=== PATIENT | female | born 1980 | race Caucasian/White ===

== ENCOUNTER 2023-03-22 06:05 | Day surgery (SDC) | payer BC, SELFPAY ==
[2023-03-22] VITALS (7 sets, daily range): BP systolic 105–136; BP diastolic 64–87; PULSE 59–96; RESP 16–18; TEMP 36.2–36.8; O2SAT 99–100; BMI 21.4
[2023-03-22 06:48] LABS: Ur HCG Qualitative* Negative (Negative)
[2023-03-22] MEDS: SODIUM CHLORIDE 0.9 % (FLUSH) 10 ML SYRINGE IVF (06:50)
[2023-03-22] MEDS: LACTATED RINGERS 1000 ML 1,000 ML 100 ML IV (06:50)
--- NOTE | 2023-03-22 06:58 | W.PM.H&PU ---
History & Physical Update History & Physical Update H&P Reviewed and patient assessed: No changes noted
[2023-03-22 07:01] LABS: Creatinine* 0.6 mg/dL (0.5-1.5); Est. Creatinine Clearance* 127.26; Estimated Glomerular Filt Rate 115 ml/min
--- NOTE | 2023-03-22 07:31 | W.PM.GYNPROC ---
Procedure Note Time Seen by Provider: 07:31 Date of procedure: 03/22/23 Procedure Description: Preoperative diagnosis: Alva is a 42 year-old G0 with abnormal uterine bleeding due to submucosal fibroid Postoperative diagnosis: Same Procedure: Hysteroscopy, Dilation and Curettage, myomectomy using the Truclear incisor Anesthesia: Conscious sedation, paracervical block. Surgeon: Minna Johnson MD Drafting Clerk: None Estimated blood loss: <5 mL UOP: 5 cc IVF: 750 cc Specimen: Endometrial fibroid to pathology. Findings: Exam under anesthesia: Uterus: anteverted position, less than 6 week sized, mobile, with no masses or nodularity palpable. Uterus sounded to 8 cm. No adnexal masses or nodularity palpable. On hysteroscopy: Approximately 3 cm submucosal fibroid was appreciated on the posterior uterine wall near the internal os. This took up almost the entire transverse diameter of the uterus. Normal bilateral tubal ostias. Normal uterine fundus and anterior uterine wall. Procedure: Alva was taken to the operating operating room more conscious sedation was found to be adequate. The patient was placed on in the dorsal lithotomy position and an exam under anesthesia was performed with findings stated above. She was then prepped and draped in a normal sterile manner. A bivalve speculum was placed in the vagina. The cervix appears nulliparous. Otherwise no abnormalities. The paracervical block was placed using 1% lidocaine with epi , 5 mL was injected at the 4 and 8 o'clock positions on the cervix. The anterior lip of the cervix was grasped with a tenaculum. The cervix dilated to Hegar 6. The uterus sounded to 8 cm. The Truclear hysteroscope was advanced into the uterus. I was unable to have introduced the TruClear hysteroscope after dilation to a 6. The cervix was subsequently dilated to Hegar 8. This accommodated the TruClear scope readily. A diagnostic hysteroscopy was performed with normal saline as the insufflation medium. Findings are stated above. The Truclear incisor was then advanced through the camera. The curettage was performed with the soft tissue incisor initially but quickly switched to the dense tissue incisor as the consistency of the mass was more indicative of a uterine fibroid than a polyp. Curettage performed over an approximately 20 minutes. The incisor was then removed. The endometrial cavity appeared normal. Saline deficit at the end of the procedure 1380 mL. Total saline used 6630 mL. The hysteroscope, tenaculum clamp were removed. Silver nitrate sticks was used for hemostasis of tenaculum site. Speculum was removed from the vaginal canal. The patient tolerated the procedure well. Sponge, lap and instrument counts were correct x2 at the end of the procedure. The patient was taken to the recovery area in stable condition. Surgical debrief performed and pathology reviewed.
--- NOTE | 2023-03-22 08:48 | W.ANESCHARGE ---
Anesthesia Charges Start Date/Time Anesthesia Start Date: 03/22/23 Anesthesia Start Time: 07:24 Stop Date/Time Anesthesia Stop Date: 03/22/23 Anesthesia Stop Time: 08:48
--- NOTE | 2023-03-22 10:04 | W.ANESCHARGE ---
Anesthesia Charges Start Date/Time Anesthesia Start Date: 03/22/23 Anesthesia Start Time: 07:24 Stop Date/Time Anesthesia Stop Date: 03/22/23 Anesthesia Stop Time: 08:48
== END 2023-03-22 10:02 | disposition home or self-care (01) ==
PROVIDERS: PCP Physician Assistant Medical; Visit Provider Obstetrics & Gynecology
PROC: 0UDB8ZZ Extraction of Endometrium, Via Natural or Artificial Opening Endoscopic (ICD-10-PCS; CPT 58558; principal; 2023-03-22 07:15)
DX: D25.0 Submucous leiomyoma of uterus (principal); N93.8 Other specified abnormal uterine and vaginal bleeding
CPT/HCPCS: 58558; 00952; 36415; 81025; 82565; 85018; 88305; J1100; J1885; J2250; J2405; J2704; J3010; J7120

== ENCOUNTER 2023-11-06 06:37 | Emergency (ER) | payer BC, SELFPAY ==
[2023-11-06 06:47] VITALS: BP 133/84; PULSE 115; RESP 20; TEMP 36.8; O2SAT 100; BMI 20.8
--- NOTE | 2023-11-06 07:20 | ED.GENADULT ---
HPI - General Adult General Chief complaint: Arrhythmia/Palpitations <Mari Desouza MD - Last Filed: 11/07/23 23:57> Stated complaint: Fast heartbeat, numb arms, feels fainting <Mari Desouza MD - Last Filed: 11/07/23 23:57> Time Seen by Provider: 11/06/23 06:55 <Mari Desouza MD - Last Filed: 11/07/23 23:57> Source: patient and family <Mari Desouza MD - Last Filed: 11/07/23 23:57> Mode of arrival: ambulatory <Mari Desouza MD - Last Filed: 11/07/23 23:57> Limitations: no limitations <Mari Desouza MD - Last Filed: 11/07/23 23:57> History of Present Illness HPI narrative: 43-year-old female presents the emergency department for evaluation of shakiness, feeling of racing heart in the setting of vaginal bleeding. This has been intermittent for the past 5 hours. She does have a history of menorrhagia and uterine polyp and underwent polypectomy and D&C about 5 months ago. Reports routine postprocedure follow-up. Menses have been getting heavier over the last 2 cycles. She had initially just had light spotting a few days ago in the medium flow for 2 days. Overnight, she started having heavy bleeding. No severe bleeding like large blood clots or soaking through more than a pad per hour but would have large gushes. She reports no chance of . She is not on any type of control. She says that her feelings felt a little like a panic a panic attack but so much more intense. No history of arrhythmia. Reports that she believes she did have blood work taken prior to her D&C about 6 months ago. Reports that this was reported as normal. It sounds as though pathology was taken at the D&C and there were no cancerous cells. She has been able to eat and drink normally. Reports that symptoms were most bothersome around 230 this morning, she actually drove to the ED but felt so much better by the time she got to the parking lot that they turned around and went home. She reports that she had at 1 point a kevin that stemmed from her head and went down both arms of numbness that lasted a few seconds but it was equal bilaterally and then she had racing heart for a couple of minutes afterwards. Reports that her heart rate was up to 120 on their home monitor briefly but has been coming back down to normal. Heart rate is 70s at the time of my interview. No history of DVT or PE. She is not experiencing shortness of breath. No stroke-like symptoms. No fever or recent illness. She did try taking home COVID test today and a few days ago and these were negative. No dysuria or unusual vaginal discharge. She is having some mild pelvic pain associated with her menses but nothing alarming. Other than the D&C, no prior history of pelvic or abdominal surgeries. Does not use anticoagulants. Past medical history is notable for anxiety disorder. Takes 40 mg of fluoxetine once daily and a 0.5 mg of clonazepam an average of 15 days per month she reports. She also has hyperlipidemia but no other risk factors for cardiac disease. Nonsmoker. ROS notable for the generalized and gynecological symptoms as described above, otherwise denies times 12 systems. <Mari Desouza MD - Last Filed: 11/07/23 23:57> Related Data Home medications: Home Medications ?Medication ?Instructions ?Recorded ?Confirmed fluoxetine 40 mg capsule 40 mg PO DAILY 02/04/23 11/06/23 clonazepam 0.5 mg tablet 0.5 mg PO 02/26/23 04/09/23 fluoxetine 20 mg capsule 20 mg PO DAILY 11/06/23 11/06/23 <Mari Desouza MD - Last Filed: 11/07/23 23:57> Allergies/adverse reactions: Allergies Allergy/AdvReac Type Severity Reaction Status Date / Time buspirone AdvReac Verified 11/06/23 06:51 <Mari Desouza MD - Last Filed: 11/07/23 23:57> [facility] Medical History: Medical History MDD (major depressive disorder) ?F32.9 - Major depressive disorder, single episode, unspecified (ICD-10) Controlled substance agreement signed ?Z79.899 - Other correction (current) drug therapy (ICD-10) Anxiety ?F41.9 - Anxiety disorder, unspecified (ICD-10) Posttraumatic stress disorder ?F43.10 - Post-traumatic stress disorder, unspecified (ICD-10) Insomnia ?G47.00 - Insomnia, unspecified (ICD-10) <Mari Desouza MD - Last Filed: 11/07/23 23:57> Surgical History: Surgical History History of tonsillectomy ?Z90.89 - Acquired absence of other organs (ICD-10) <Mari Desouza MD - Last Filed: 11/07/23 23:57> Social History: Social History Smoking Status: Never smoker How often do you have a drink containing alcohol: monthly or less AUDIT-C Alcohol total score: 1 Non-prescribed substance use: denies use Caffeine: Yes <Mari Desouza MD - Last Filed: 11/07/23 23:57> Exam Const: Vital Signs, click to edit/add: Vital Signs - 24 hr 11/06/23 06:47 11/06/23 07:35 Temperature 98.3 F Pulse Rate [Pulse Oximeter] 115 H 66 Respiratory Rate 20 18 Blood Pressure [Le ft Upper Arm] 133/84 113/62 Pulse Oximetry 100 Oxygen Delivery Me thod Room Air <Mari Desouza MD - Last Filed: 11/07/23 23:57> Vital Signs, click to edit/add: Vital Signs - 24 hr 11/06/23 06:47 11/06/23 07:35 Temperature 98.3 F Pulse Rate [Pulse Oximeter] 115 H 66 Respiratory Rate 20 18 Blood Pressure [Le ft Upper Arm] 133/84 113/62 Pulse Oximetry 100 Oxygen Delivery Me thod Room Air <Yaya Burns MD - Last Filed: 11/06/23 09:42> Documenting provider has reviewed patient's vital signs: yes <Mari Desouza MD - Last Filed: 11/07/23 23:57> Common normals: alert <Mari Desouza MD - Last Filed: 11/07/23 23:57> General appearance: well kempt <MD Tawnya Lopes Last Filed: 11/07/23 23:57> Orientation/consciousness: Yes awake <MD Tawnya Lopes Last Filed: 11/07/23 23:57> Other: Anxious but cooperative. Insightful. Appears well-nourished, well-hydrated, and well. <MD Tawnya Lopes Last Filed: 11/07/23 23:57> HENMT: Common normals: normocephalic, moist oral mucous membranes, oropharynx normal and dentition normal <MD Tawnya Lopes Last Filed: 11/07/23 23:57> Head and scalp: normocephalic <MD Tawnya Lopes Last Filed: 11/07/23 23:57> Mouth: oral and palatal mucosa normal <MD Tawnya Lopes Last Filed: 11/07/23 23:57> Throat: posterior oropharynx normal <MD Tawnya Lopes Last Filed: 11/07/23 23:57> Eye: Common normals: EOMs intact bilaterally and conjunctivae normal <MD Tawnya Lopes Last Filed: 11/07/23 23:57> General eye: normal appearance of both eyes <MD Tawnya Lopes Last Filed: 11/07/23 23:57> Conjunctiva: conjunctiva(e) normal <MD Tawnya Lopes Last Filed: 11/07/23 23:57> Neck & C-Spine: Common normals: full ROM, no lymphadenopathy and thyroid normal <MD Tawnya Lopes Last Filed: 11/07/23 23:57> General: normal visual inspection <MD Tawnya Lopes Last Filed: 11/07/23 23:57> Thyroid: thyroid normal <MD Tawnya Lopes Last Filed: 11/07/23 23:57> Resp: Common normals: normal respiratory effort, no use of accessory muscles and clear to auscultation bilaterally <MD Tawnya Lopes Last Filed: 11/07/23 23:57> Effort & inspection: able to speak in complete sentences <Mari Desouza MD - Last Filed: 11/07/23 23:57> Auscultation: clear to auscultation bilaterally <Mari Desouza MD - Last Filed: 11/07/23 23:57> Cardio: Common normals: regular rate, regular rhythm, S1 normal heart sound, S2 normal heart sound and no murmurs <Mari Desouza MD - Last Filed: 11/07/23 23:57> Rate: regular rate <Mari Desouza MD - Last Filed: 11/07/23 23:57> Rhythm: regular rhythm <Mari Desouza MD - Last Filed: 11/07/23 23:57> Heart sounds: S1 normal and S2 normal <MD Tawnya Lopes Last Filed: 11/07/23 23:57> GI: Common normals: Normal to inspection, nondistended, normoactive bowel sounds present, soft to palpation, non-tender, no hepatosplenomegaly and no masses <Mari Desouza MD - Last Filed: 11/07/23 23:57> Palpation: soft and no hepatosplenomegaly <Mari Desouza MD - Last Filed: 11/07/23 23:57> Extremity: Common normals: normal to inspection, normal capillary refill and no pedal edema <Mari Desouza MD - Last Filed: 11/07/23 23:57> Neuro: Common normals: moves all extremities <MD Tawnya Lopes Last Filed: 11/07/23 23:57> Sensorium/orientation: awake and alert <MD Tawnya Lopes Last Filed: 11/07/23 23:57> Speech: speech normal <Mari Desouza MD - Last Filed: 11/07/23 23:57> Motor exam: strength 5/5 throughout, muscle tone normal throughout and no movement abnormalities noted <MD Tawnya Lopes Last Filed: 11/07/23 23:57> Psych: Common normals: thought process normal and cooperative <Mari Desouza MD - Last Filed: 11/07/23 23:57> Appearance: well kempt <Mari Desouza MD - Last Filed: 11/07/23 23:57> Activity/motor behavior: appropriate eye contact <Mari Desouza MD - Last Filed: 11/07/23 23:57> Mood and affect: anxious (Mildly anxious but redirectable. Good insight into this.) <Mari Desouza MD - Last Filed: 11/07/23 23:57> Thought process: normal thought process <Mari Desouza MD - Last Filed: 11/07/23 23:57> Insight: insight good <Mari Desouza MD - Last Filed: 11/07/23 23:57> Judgement: judgment good <Mari Desouza MD - Last Filed: 11/07/23 23:57> Skin: Common normals: no rashes or lesions noted <Mari Desouza MD - Last Filed: 11/07/23 23:57> General skin exam: no rashes or lesions noted <Mari Desouza MD - Last Filed: 11/07/23 23:57> Course Course ED Course: 43-year-old female with an episode of shakiness, racing heart and generalized weakness in the setting of brief heavy menstrual flow. Suspect symptomatic acute blood loss. She reports that the bleeding has since improved again. Counseled patient on my initial thoughts. Cannot exclude arrhythmia, thyroid disease, severe anemia, electrolyte abnormality, infection, complication, amongst others. Recommended EKG, basic blood work to look at thyroid, electrolytes, anemia, inflammatory markers and test. Heart rate has come back down to normal. EKG now showing 63. No indications for IV fluid. Await lab tests. Counseled patient that we will hopefully not find anything emergent but she may benefit from gynecology follow-up as she will be a risk of these episodes happening again if the tests are non revealing. Anticipate handing over care to incoming day shift partner, Dr. Burns. <Mari Desouza MD - Last Filed: 11/07/23 23:57> Vital Signs Vital signs: Initial Vital Signs Temperature 98.3 F 11/06/23 06:47 Temperature Source Temporal Artery Scan 11/06/23 06:47 Pulse Rate 115 H 11/06/23 06:47 Pulse Rhythm Regular 11/06/23 06:47 Pulse Strength 3+ Normal 11/06/23 06:47 Respiratory Rate 20 11/06/23 06:47 Blood Pressure 133/84 11/06/23 06:47 Blood Pressure Mean 100 11/06/23 06:47 Blood Pressure Position Semi-Fowlers 11/06/23 06:47 Pulse Oximetry 100 11/06/23 06:47 Oxygen Delivery Method Room Air 11/06/23 06:47 Vital Signs Temperature 98.3 F 11/06/23 06:47 Pulse Rate 115 H 11/06/23 06:47 Respiratory Rate 20 11/06/23 06:47 Blood Pressure 133/84 11/06/23 06:47 Pulse Oximetry 100 11/06/23 06:47 Oxygen Delivery Method Room Air 11/06/23 06:47 Temperature 98.3 F 11/06/23 06:47 Pulse Rate 66 11/06/23 07:35 Respiratory Rate 18 11/06/23 07:35 Blood Pressure 113/62 11/06/23 07:35 Pulse Oximetry 100 11/06/23 06:47 Oxygen Delivery Method Room Air 11/06/23 06:47 <Mari Desouza MD - Last Filed: 11/07/23 23:57> Initial Vital Signs Temperature 98.3 F 11/06/23 06:47 Temperature Source Temporal Artery Scan 11/06/23 06:47 Pulse Rate 115 H 11/06/23 06:47 Pulse Rhythm Regular 11/06/23 06:47 Pulse Strength 3+ Normal 11/06/23 06:47 Respiratory Rate 20 11/06/23 06:47 Blood Pressure 133/84 11/06/23 06:47 Blood Pressure Mean 100 11/06/23 06:47 Blood Pressure Position Semi-Fowlers 11/06/23 06:47 Pulse Oximetry 100 11/06/23 06:47 Oxygen Delivery Method Room Air 11/06/23 06:47 Vital Signs Temperature 98.3 F 11/06/23 06:47 Pulse Rate 115 H 11/06/23 06:47 Respiratory Rate 20 11/06/23 06:47 Blood Pressure 133/84 11/06/23 06:47 Pulse Oximetry 100 11/06/23 06:47 Oxygen Delivery Method Room Air 11/06/23 06:47 Temperature 98.3 F 11/06/23 06:47 Pulse Rate 66 11/06/23 07:35 Respiratory Rate 18 11/06/23 07:35 Blood Pressure 113/62 11/06/23 07:35 Pulse Oximetry 100 11/06/23 06:47 Oxygen Delivery Method Room Air 11/06/23 06:47 <Yaya Burns MD - Last Filed: 11/06/23 09:42> Medical Decision Making MDM Narrative Medical decision making narrative: Lab results returned with reassuring findings. In particular her thyroid returns in normal range. <Yaya Burns MD - Last Filed: 11/06/23 09:42> Lab Data Lab results reviewed: Yes I reviewed the patient's lab results <Mari Dseouza MD - Last Filed: 11/07/23 23:57> Labs: Lab Results 11/06/23 11/06/23 Range/Units 07:13 07:26 WBC 5.29 (4.50-11.00) K/uL RBC 4.01 (4.00-5.20) m/uL Hgb 11.1 L (12.0-16.0) gm/dL Hct 34.3 (33.0-51.0) % MCV 86 (80-100) fL MCH 28 (26-34) pg MCHC 32 (32-36) gm/dL RDW Coeff of Diane 14.5 (11.5-15.5) % Plt Count 335 (140-440) K/uL Neut % (Auto) 61.8 (42.0-72.0) % Lymph % (Auto) 29.5 (20-44) % Dougherty % (Auto) 4.7 (0.0-11.0) % Eos % (Auto) 3.0 (0.0-7.0) % Baso % (Auto) 0.6 (0.0-3.0) % Neut # (Auto) 3.27 (1.7-7.0) K/uL Lymph # (Auto) 1.56 (0.90-2.90) K/uL Dougherty # (Auto) 0.20 (0.00-0.90) K/UL Eos # (Auto) 0.16 (0.00-0.50) K/uL Baso # (Auto) 0.03 (0.00-0.30) K/uL Abs Immat Gran (auto) 0.02 (0.00-0.30) K/uL Imm/Tot Granulo (auto) 0.4 % Sodium 135 (135-149) mmol/L Potassium 4.1 (3.6-5.1) mmol/L Chloride 105 (96-114) mmol/L Carbon Dioxide 23 (20-32) mmol/L Anion Gap 7 (7-15) mEq/L BUN 12 (5-24) mg/dL Creatinine 0.6 (0.5-1.5) mg/dL Estimated Creat Clear 125.53 Estimated GFR 114 ml/min Glucose 107 (60-115) mg/dL Calcium 10.1 (8.4-10.6) mg/dL Ferritin 6.1 L (6.24-137.0) ng/mL C-Reactive Protein < 0.5 L (0.5-1.0) mg/dL TSH 3.150 (0.270-4.200) uIU/mL Urine HCG, Qual Negative (Negative) POC Troponin I 0.00 L (0.01-0.04) ng/ml <Mari Desouza MD - Last Filed: 11/07/23 23:57> Lab Results 11/06/23 11/06/23 Range/Units 07:13 07:26 WBC 5.29 (4.50-11.00) K/uL RBC 4.01 (4.00-5.20) m/uL Hgb 11.1 L (12.0-16.0) gm/dL Hct 34.3 (33.0-51.0) % MCV 86 (80-100) fL MCH 28 (26-34) pg MCHC 32 (32-36) gm/dL RDW Coeff of Diane 14.5 (11.5-15.5) % Plt Count 335 (140-440) K/uL Neut % (Auto) 61.8 (42.0-72.0) % Lymph % (Auto) 29.5 (20-44) % Dougherty % (Auto) 4.7 (0.0-11.0) % Eos % (Auto) 3.0 (0.0-7.0) % Baso % (Auto) 0.6 (0.0-3.0) % Neut # (Auto) 3.27 (1.7-7.0) K/uL Lymph # (Auto) 1.56 (0.90-2.90) K/uL Dougherty # (Auto) 0.20 (0.00-0.90) K/UL Eos # (Auto) 0.16 (0.00-0.50) K/uL Baso # (Auto) 0.03 (0.00-0.30) K/uL Abs Immat Gran (auto) 0.02 (0.00-0.30) K/uL Imm/Tot Granulo (auto) 0.4 % Sodium 135 (135-149) mmol/L Potassium 4.1 (3.6-5.1) mmol/L Chloride 105 (96-114) mmol/L Carbon Dioxide 23 (20-32) mmol/L Anion Gap 7 (7-15) mEq/L BUN 12 (5-24) mg/dL Creatinine 0.6 (0.5-1.5) mg/dL Estimated Creat Clear 125.53 Estimated GFR 114 ml/min Glucose 107 (60-115) mg/dL Calcium 10.1 (8.4-10.6) mg/dL Ferritin 6.1 L (6.24-137.0) ng/mL C-Reactive Protein < 0.5 L (0.5-1.0) mg/dL TSH 3.150 (0.270-4.200) uIU/mL Urine HCG, Qual Negative (Negative) POC Troponin I 0.00 L (0.01-0.04) ng/ml <Yaya Burns MD - Last Filed: 11/06/23 09:42> ECG Data Attestation: I personally reviewed and interpreted this ECG as follows: <Mari Desouza MD - Last Filed: 11/07/23 23:57> Prior ECG tracings: not available for review <Mari Desouza MD - Last Filed: 11/07/23 23:57> Interpretation: Normal sinus rhythm, rate of 63. Normal intervals and axis. No significant ST or T-wave abnormalities. Good R-wave progression. Normal EKG. <Mari Desouza MD - Last Filed: 11/07/23 23:57> Discharge Plan Discharge Clinical Impression: Acute blood loss anemia <Mari Desouza MD - Last Filed: 11/07/23 23:57> Patient Disposition: Home w/ Parent or Adult <Mari Desouza MD - Last Filed: 11/07/23 23:57> Condition: Improved <Mari Desouza MD - Last Filed: 11/07/23 23:57> Instructions: Acute Posthemorrhagic Anemia (DC) <Mari Desouza MD - Last Filed: 11/07/23 23:57> Additional Instructions: As we discussed, I suspect that your symptoms were triggered by sudden blood loss from the heavy menstrual period. Your blood work does reflect mild anemia. But as we discussed, the sudden change in blood and sudden heavy bleeding can trigger a fight or flight response which can feel more dramatic. This can be especially common if your menstrual cycles have been heavier and your iron levels may be a bit low. There are no signs of any underlying heart disease. Unfortunately, the mechanisms that trigger this type of a response can happen again. I would recommend that you follow-up with your supply chain systems manager to further discuss your menstrual cycles. Drink plenty of fluids today and try to eat iron rich foods over the next few months. An [id number] iron supplement 3 times per week may also be helpful. Your supply chain systems manager may give you more precise instructions based on their overall plan. If these episodes happen again, drinking lots of fluids to replace the lost blood volume will help minimize symptoms even if it does not replace the iron and other cells as quickly. If you have severe bleeding to the point where your soaking through more than a full pad per hour and this goes on for at least a couple of hours, you should be evaluated in the emergency department. It is safe to continue your typical home medications. <Mari Desouza MD - Last Filed: 11/07/23 23:57> Activity Level: Activity as Tolerated <Mari Desouza MD - Last Filed: 11/07/23 23:57> Activity as Tolerated <Yaya Burns MD - Last Filed: 11/06/23 09:42> Discharge Diet: Regular <Mari Desouza MD - Last Filed: 11/07/23 23:57> Regular <Yaya Burns MD - Last Filed: 11/06/23 09:42> Prescriptions: No Action fluoxetine 40 mg capsule 40 mg PO DAILY clonazepam 0.5 mg tablet 0.5 mg PO fluoxetine 20 mg capsule 20 mg PO DAILY <Mari Desouza MD - Last Filed: 11/07/23 23:57> Follow Up/Referrals: Renee Montgomery, PATawnyaC [Primary Care Provider] - <Mari Desouza MD - Last Filed: 11/07/23 23:57> Stand Alone Forms: MyHealth Info Instructions <Mari Desouza MD - Last Filed: 11/07/23 23:57>
[2023-11-06 07:35] VITALS: BP 113/62; PULSE 66; RESP 18
[2023-11-06 07:39] LABS: Basophils Absolute Auto 0.03 K/uL (0.00-0.30); Basophils Percent Auto 0.6 % (0.0-3.0); Eosinophils Absolute Auto 0.16 K/uL (0.00-0.50); Hematocrit 34.3 % (33.0-51.0); Hemoglobin* 11.1 gm/dL (12.0-16.0); Immature Granulocytes Abs Auto 0.02 K/uL (0.00-0.30); Immature Granulocytes Pct Auto 0.4 %; Lymphocytes Absolute Auto 1.56 K/uL (0.90-2.90); Lymphocytes Percent Auto 29.5 % (20-44); Mean Corpuscular HGB Conc 32 gm/dL (32-36); Mean Corpuscular Hemoglobin 28 pg (26-34); Mean Corpuscular Volume 86 fL (80-100); Monocytes Percent Auto 4.7 % (0.0-11.0); Neutrophils Absolute Auto 3.27 K/uL (1.7-7.0); Neutrophils Percent Auto 61.8 % (42.0-72.0); Platelet Count* 335 K/uL (140-440); RDW Coefficient of Variation % 14.5 % (11.5-15.5); Red Blood Count 4.01 m/uL (4.00-5.20); White Blood Count* 5.29 K/uL (4.50-11.00)
[2023-11-06 07:44] LABS: Slide Review Reflex No
[2023-11-06 07:46] LABS: Ur HCG Qualitative* Negative (Negative)
[2023-11-06 07:48] LABS: Chloride* 105 mmol/L (96-114); Potassium* 4.1 mmol/L (3.6-5.1); Sodium* 135 mmol/L (135-149)
[2023-11-06 07:50] LABS: Creatinine* 0.6 mg/dL (0.5-1.5); Est. Creatinine Clearance* 125.53; Estimated Glomerular Filt Rate 114 ml/min
[2023-11-06 07:51] LABS: Anion Gap 7 mEq/L (7-15); Blood Urea Nitrogen* 12 mg/dL (5-24); Carbon Dioxide* 23 mmol/L (20-32); Glucose* 107 mg/dL (60-115)
[2023-11-06 07:52] LABS: Calcium* 10.1 mg/dL (8.4-10.6)
[2023-11-06 07:55] LABS: C Reactive Protein* < 0.5 mg/dL (0.5-1.0)
[2023-11-06 08:26] LABS: Ferritin* 6.1 ng/mL (6.24-137.0)
== END 2023-11-06 09:47 | disposition home or self-care (01) ==
PROVIDERS: Emergency Provider Family Medicine; PCP Physician Assistant Medical
DX: D62 Acute posthemorrhagic anemia (principal)
CPT/HCPCS: 36415; 80048; 81025; 82728; 84443; 84484; 85025; 86140; 93005; 99284

== ENCOUNTER 2024-03-03 12:08 | Outpatient (CLI) | payer BC, SELFPAY | END 2024-03-03 12:09 | disposition home or self-care (01) | PROVIDERS: PCP Physician Assistant Medical; Visit Provider Nurse Practitioner | DX: R00.2 Palpitations (principal); F41.9 Anxiety disorder, unspecified | CPT/HCPCS: 82306; 82728; 84443 ==